=== PATIENT | female | born 1960 | race Caucasian/White ===

== ENCOUNTER 2019-06-07 13:56 | Emergency (ER) | payer MEDICARE, MEDICAID ==
[~2019-06-07] VITALS: Ht 165.1 cm; Wt 110.4 kg
[~2019-06-07 13:56] MED LIST: BUPR100T6 PO; CLON1TAB23 PO; LAMO100T37 PO; MELO15TA23 PO; OMEP20CA16 PO; VENTOLIN HFA18 GM INH; ZOLP10TA PO
[2019-06-07 14:34] LABS: BASO # 0.1 x10^3/uL (0.0-0.2); BASO % 1 % (0-3); EOS # 0.2 x10^3/uL (0.0-0.7); EOS % 2 % (0-3); HEMATOCRIT 42.8 % (36.0-47.0); HEMOGLOBIN 14.2 g/dL (12.0-15.5); LYMPH # 2.7 x10^3/uL (1.0-4.8); LYMPH % 32 % (24-48); MEAN CORPUSCULAR HEMOGLOBIN 28 pg (25-35); MEAN CORPUSCULAR HGB CONC 33 g/dL (31-37); MEAN CORPUSCULAR VOLUME 85 fL (79-100); MONO # 0.6 x10^3/uL (0.0-1.1); MONO % 7 % (0-9); NEUT # 4.9 x10^3/uL (1.8-7.7); NEUT % 57 % (31-73); PLATELET COUNT 243 x10^3/uL (140-400); RED BLOOD COUNT 5.06 x10^6/uL (3.50-5.40); WHITE BLOOD COUNT 8.5 x10^3/uL (4.0-11.0)
--- NOTE | 2019-06-07 14:42 | PHYS DOC ---
Adult General Chief Complaint Chief Complaint: SHORTNESS OF BREATH HPI HPI Patient is a 59 year old female who presents with per EMS with shortness of breath and increasing cough for the last 3 days. She states she has been using her inhalers at home but they are not helping. She does have COPD and is a smoker currently. She denies fever, nausea, vomiting, chest pain, dizziness, LOC, vision changes, numbness or tingling, focal weakness, diarrhea, headache. Review of Systems Review of Systems Respiratory: cough or shortness of breath [] All other systems were reviewed and found to be within normal limits, except as documented in this note. Current Medications Current Medications Current Medications Medications (Trade) Dose Ordered Sig/Kenny Start Time Stop Time Status Last Admin Dose Admin Albuterol Sulfate (Ventolin Neb Soln) 2.5 mg 1X ONCE 06/07/19 14:45 06/07/19 14:46 DC Methylprednisolone Sodium Succinate (SOLU-Medrol 125MG VIAL) 125 mg 1X ONCE 06/07/19 14:45 06/07/19 14:46 DC 06/07/19 15:01 125 MG Allergies Allergies Allergies Coded Allergies Type Severity Reaction Last Updated Verified aspirin Allergy Intermediate heart speeds up 08/23/13 Yes Physical Exam Physical Exam Constitutional: Well developed, well nourished, no acute distress, non-toxic appearance. [] HENT: Normocephalic, atraumatic, bilateral external ears normal, oropharynx moist, no oral exudates, nose normal. [] Eyes: PERRLA, EOMI, conjunctiva normal, no discharge. [] Neck: Normal range of motion, no tenderness, supple, no stridor. [] Cardiovascular:Heart rate regular rhythm, no murmur [] Lungs & Thorax: Bilateral upper breath sounds clear and lower diminished to auscultation [] Abdomen: Bowel sounds normal, soft, no tenderness, no masses, no pulsatile masses. [] Skin: Warm, dry, no erythema, no rash. [] Back: No tenderness, no CVA tenderness. [] Extremities: No tenderness, no cyanosis, no clubbing, ROM intact, no edema. [] Neurologic: Alert and oriented X 3, normal motor function, normal sensory function, no focal deficits noted. [] Psychologic: Affect normal, judgement normal, mood normal. [] Current Patient Data Vital Signs Vital Signs Date Time Temp Pulse Resp B/P (MAP) Pulse Ox O2 Delivery O2 Flow Rate FiO2 06/07/19 15:11 82 121/68 (85) 96 Room Air 06/07/19 13:56 98.4 20 98.4 Lab Values Laboratory Tests Test 06/07/19 14:20 06/07/19 15:10 White Blood Count 8.5 x10^3/uL (4.0-11.0) Red Blood Count 5.06 x10^6/uL (3.50-5.40) Hemoglobin 14.2 g/dL (12.0-15.5) Hematocrit 42.8 % (36.0-47.0) Mean Corpuscular Volume 85 fL (79-100) Mean Corpuscular Hemoglobin 28 pg (25-35) Mean Corpuscular Hemoglobin Concent 33 g/dL (31-37) Red Cell Distribution Width 15.0 % (11.5-14.5) H Platelet Count 243 x10^3/uL (140-400) Neutrophils (%) (Auto) 57 % (31-73) Lymphocytes (%) (Auto) 32 % (24-48) Monocytes (%) (Auto) 7 % (0-9) Eosinophils (%) (Auto) 2 % (0-3) Basophils (%) (Auto) 1 % (0-3) Neutrophils # (Auto) 4.9 x10^3/uL (1.8-7.7) Lymphocytes # (Auto) 2.7 x10^3/uL (1.0-4.8) Monocytes # (Auto) 0.6 x10^3/uL (0.0-1.1) Eosinophils # (Auto) 0.2 x10^3/uL (0.0-0.7) Basophils # (Auto) 0.1 x10^3/uL (0.0-0.2) Sodium Level 143 mmol/L (136-145) Potassium Level 4.2 mmol/L (3.5-5.1) Chloride Level 106 mmol/L (98-107) Carbon Dioxide Level 28 mmol/L (21-32) Anion Gap 9 (6-14) Blood Urea Nitrogen 15 mg/dL (7-20) Creatinine 0.8 mg/dL (0.6-1.0) Estimated GFR (Cockcroft-Gault) 73.4 BUN/Creatinine Ratio 19 (6-20) Glucose Level 101 mg/dL (70-99) H Calcium Level 9.7 mg/dL (8.5-10.1) Total Bilirubin 0.2 mg/dL (0.2-1.0) Aspartate Amino Transferase (AST) 21 U/L (15-37) Alanine Aminotransferase (ALT) 21 U/L (14-59) Alkaline Phosphatase 108 U/L (46-116) Troponin I Quantitative < 0.017 ng/mL (0.000-0.055) PV-Qsu-W-Type Natriuretic Peptide 17 pg/mL (0-124) Total Protein 7.3 g/dL (6.4-8.2) Albumin 3.2 g/dL (3.4-5.0) L Albumin/Globulin Ratio 0.8 (1.0-1.7) L Influenza Type A Antigen Negative (NEGATIVE) Influenza Type B Antigen Negative (NEGATIVE) Laboratory Tests 06/07/19 14:20 Laboratory Tests 06/07/19 15:10 EKG EKG SINUS RHYTHM AND NO STEMI[] Interpretation Time: [address] FIORE Radiology/Procedures Radiology/Procedures [] Impressions: [facility] [address] [place], [place] [id number] IMAGING REPORT Signed PATIENT: KIMBERLEY LOZA DACCOUNT: [id number] : 1960 LOCATION: ER AGE: 59 SEX: F EXAM STATUS: REG ER ORD. PHYSICIAN: ZACK MCADAMS APRN REASON: soa, cough PROCEDURE: PORTABLE CHEST 1V PORTABLE CHEST 1V Clinical indications: Shortness of air and cough. COMPARISON: None available. Findings: Old granulomatous disease is seen. No acute lung infiltrate or pleural effusion or pulmonary edema or lung mass or pneumothorax is seen. The heart size, pulmonary vasculature, mediastinum and both elliot are unremarkable. Impression: No acute radiographic abnormality is seen. Electronically signed by: Tello Rasheed MD (06/07/2019 3:14 PM) [facility] [place] DICTATED and SIGNED BY: TELLO RASHEED MD DATE: 06/07/19 9004 Course & Med Decision Making Course & Med Decision Making Pertinent Labs and Imaging studies reviewed. (See chart for details) Alert and oriented. Speaks in full clear sentences. Skin pink warm and dry. Lungs are clear in upper lobes but diminished in lower lobes bilaterally. Ambulatory with a steady gait. Patient is 95% on room air. No extremity edema. Patient is stable and states she is feeling better and ready to go home. Patient lungs are clear and vital signs are normal. Chest xrays normal and blood work is good. Patient is stable and discharged home. [] Dragon Disclaimer Dragon Disclaimer This electronic medical record was generated, in whole or in part, using a voice recognition dictation system. Departure Departure Impression: Primary Impression: Shortness of breath Disposition: HOME, SELF-CARE Condition: STABLE Referrals: ABDULKADIR GARCIA MD (PCP) Patient Instructions: Chronic Obstructive Pulmonary Disease Exacerbation, [id number] Additional Instructions: Follow up with primary care provider. Take medication as prescribed. Scripts Albuterol Sulfate (PROAIR HFA INHALER) 8.5 Gm Hfa.aer.ad 1 PUFF INH PRN Q6HRS PRN for SHORTNESS OF BREATH, #1 INHALER 0 Refills Prov: ZACK MCADAMS APRN 06/07/19 Methylprednisolone (MEDROL) 4 Mg Tab.ds.pk 1 PKG PO UD, #1 PKG Prov: ZACK MCADAMS APRN 06/07/19 ZACK MCADAMS APRN Jun 07, 2019 14:42
[2019-06-07] MEDS ORDERED: methylPREDNISolone SOD SUCC PF 125 MG/2 ML VIAL. IV ONE (14:45)
[2019-06-07] MEDS ORDERED: ALBUTEROL SULFATE 2.5 MG/3 ML NEBU. NEB ONE (14:45)
--- NOTE | 2019-06-07 14:50 | EKG ---
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
[2019-06-07 15:16] LABS: BASE EXCESS COOX 0 mmol/L (-3-3); HCO3 COOX 26 mmol/L (21-28); METHEMOGLOBIN 0.2 % (0.0-1.9); OXYHEMOGLOBIN 89.9 %; PCO2 COOX 47 mmHg (35-46); PO2 COOX 67 mmHg (65-108); SAT O2 COOX 93 % (92-99)
--- NOTE | 2019-06-07 15:17 | RAD ---
PORTABLE CHEST 1V Clinical indications: Shortness of air and cough. COMPARISON: None available. Findings: Old granulomatous disease is seen. No acute lung infiltrate or pleural effusion or pulmonary edema or lung mass or pneumothorax is seen. The heart size, pulmonary vasculature, mediastinum and both elliot are unremarkable. Impression: No acute radiographic abnormality is seen. Electronically signed by: Genaro Rasheed MD (06/07/2019 3:14 PM) [facility] [place]
[2019-06-07 15:37] LABS: CALCIUM 9.7 mg/dL (8.5-10.1); CREATININE 0.8 mg/dL (0.6-1.0); GFR 73.4; POTASSIUM 4.2 mmol/L (3.5-5.1)
[2019-06-07 15:38] VITALS: BP 151/88
[2019-06-07 15:43] LABS: ALBUMIN 3.2 g/dL (3.4-5.0); ALBUMIN/GLOBULIN RATIO 0.8 (1.0-1.7); TOTAL BILIRUBIN 0.2 mg/dL (0.2-1.0); TOTAL PROTEIN 7.3 g/dL (6.4-8.2)
[2019-06-07 15:45] LABS: INFLUENZA A PATIENT NEGATIVE (NEGATIVE); INFLUENZA B PATIENT NEGATIVE (NEGATIVE)
[2019-06-07] MEDS ORDERED: METH4TAB2 PO (15:56)
[2019-06-07] MEDS ORDERED: ALBU2.5V8 INH (15:56)
== END 2019-06-07 16:01 | disposition home or self-care (01) ==
LOC: ER 13:56
DX: R06.02 Shortness of breath (principal); R05 Cough; J44.9 Chronic obstructive pulmonary disease, unspecified; F17.200 Nicotine dependence, unspecified, uncomplicated; Z88.6 Allergy status to analgesic agent
CPT/HCPCS: 36415; 36600; 71045; 80053; 82805; 83880; 84484; 85025; 87804; 93005; 94640; 96374; 99285; J2930

== ENCOUNTER 2020-09-23 09:35 | Emergency (ER) | payer MEDICARE, MEDICAID ==
[~2020-09-23] VITALS: Ht 165.1 cm; Wt 110.4 kg
[~2020-09-23 09:35] MED LIST changes: +ALBU2.5V8 INH; +METH4TAB2 PO
[2020-09-23] MEDS ORDERED: ASPIRIN CHEWABLE 81 MG TABLET. PO ONE (10:00)
--- NOTE | 2020-09-23 10:03 | PHYS DOC ---
Past Medical History Past Medical History: Bipolar, Bronchitis, COPD, GERD Past Surgical History: Hysterectomy, Other Additional Past Surgical Histo: KNEE/BLADDER LIFT/BREAST-CYST Smoking Status: Former Smoker Alcohol Use: None General Adult EDM: Chief Complaint: ABDOMINAL PAIN HPI: HPI: Patient is a 60-year-old female presenting for abdominal and chest pain. Patient was admitted and subsequently left AMA approximately 2 weeks ago in the middle of treatment for COVID-19 pneumonia and potential superior mesenteric vein thrombus. She did not leave on any antibiotics or anticoagulation. Reports improvement in overall symptoms but yesterday, without any known inciting event, exposure or trauma, patient started experiencing generalized 6/10 severity abdominal pain. Nothing known makes better or worse. This is w axed and waned since onset. She also reports onset of dull 8/10 left-sided chest pain that is constant since onset. She takes gabapentin and benzodiazepines only, no aspirin/Plavix or anticoagulants, has distant history of nuclear stress test but this was years ago and negative, no further cardiac work-up in the past. Continues to smoke, denies alcohol or illicit drug use. Review of Systems: Review of Systems: Fourteen body systems of review of systems have been reviewed. See HPI for pertinent positives and negative responses, other mensah all other systems are negative, non-pertinent or non-contributory Heart Score: C/O Chest Pain: Yes HEART Score for Chest Pain: HEART Score for Chest Pain Response (Comments) Value History Slighlty/Non-Suspicious 0 ECG Nonspecific Repolarizatio 1 Age >45 - < 65 1 Risk Factors 1 or 2 Risk Factors 1 Troponin < Normal Limit 0 Total 3 Risk Factors: Risk Factors: DM, Current or recent (<one month) smoker, HTN, HLP, family history of CAD, obesity. Risk Scores: Score 0 - 3: 2.5% MACE over next 6 weeks - Discharge Home Score 4 - 6: 20.3% MACE over next 6 weeks - Admit for Clinical Observation Score 7 - 10: 72.7% MACE over next 6 weeks - Early Invasive Strategies Allergies: Allergies: Allergies Coded Allergies Type Severity Reaction Last Updated Verified aspirin Allergy Intermediate heart speeds up 08/23/13 Yes Physical Exam: PE: Constitutional: Well developed, well nourished, no acute distress, non-toxic appearance. HENT: Normocephalic, atraumatic, bilateral external ears normal, oropharynx moist, poor dentition, no oral exudates, nose normal. Eyes: PERRLA, EOMI, conjunctiva normal, no discharge. Neck: Normal range of motion, no tenderness, supple, no stridor. Cardiovascular: Heart rate regular, sinus rhythm, no murmurs rubs or gallops Lungs & Thorax: No respiratory distress, increased work of breathing or accessory muscle use, there is mild wheezes most prominent during end expiratory phase of respiration Abdomen: Bowel sounds normal, soft, no tenderness, no masses, no pulsatile masses. Nonsurgical abdomen, no peritoneal signs Skin: Warm, dry, no erythema, no rash. Back: No tenderness, no CVA tenderness. Extremities: No tenderness, no cyanosis, no clubbing, ROM intact, no edema. Neurologic: Alert and oriented X 3, grossly normal motor & sensory function, no focal deficits noted. Psychologic: Anxious affect and mood, pressured speech Current Patient Data: Labs: Laboratory Tests Test 09/23/20 11:04 White Blood Count 9.0 x10^3/uL Red Blood Count 4.83 x10^6/uL Hemoglobin 14.5 g/dL Hematocrit 41.7 % Mean Corpuscular Volume 86 fL Mean Corpuscular Hemoglobin 30 pg Mean Corpuscular Hemoglobin Concent 35 g/dL Red Cell Distribution Width 15.2 % Platelet Count 249 x10^3/uL Neutrophils (%) (Auto) 55 % Lymphocytes (%) (Auto) 32 % Monocytes (%) (Auto) 10 % Eosinophils (%) (Auto) 3 % Basophils (%) (Auto) 1 % Neutrophils # (Auto) 4.9 x10^3/uL Lymphocytes # (Auto) 2.8 x10^3/uL Monocytes # (Auto) 0.9 x10^3/uL Eosinophils # (Auto) 0.3 x10^3/uL Basophils # (Auto) 0.0 x10^3/uL Sodium Level 141 mmol/L Potassium Level 4.2 mmol/L Chloride Level 104 mmol/L Carbon Dioxide Level 27 mmol/L Anion Gap 10 Blood Urea Nitrogen 7 mg/dL Creatinine 0.8 mg/dL Estimated GFR (Cockcroft-Gault) 73.2 BUN/Creatinine Ratio 9 Glucose Level 115 mg/dL Calcium Level 8.9 mg/dL Total Bilirubin 0.2 mg/dL Aspartate Amino Transf (AST/SGOT) 15 U/L Alanine Aminotransferase (ALT/SGPT) 17 U/L Alkaline Phosphatase 92 U/L Troponin I Quantitative < 0.017 ng/mL FA-Hid-P-Type Natriuretic Peptide 17 pg/mL Total Protein 7.3 g/dL Albumin 3.3 g/dL Albumin/Globulin Ratio 0.8 Lipase 96 U/L Current Medications Medications (Trade) Dose Ordered Sig/Kenny Route PRN Reason Start Time Stop Time Status Last Admin Dose Admin Aspirin (Aspirin Chewable) 324 mg 1X ONCE PO 09/23/20 10:00 09/23/20 10:05 DC Iohexol (Omnipaque 350 Mg/ml) 100 ml 1X ONCE IV 09/23/20 11:30 09/23/20 11:31 DC 09/23/20 11:30 Info (CONTRAST GIVEN -- Rx MONITORING) 1 each PRN DAILY PRN MC SEE COMMENTS 09/23/20 11:30 09/25/20 11:29 Vital Signs: Vital Signs Date Time Temp Pulse Resp B/P (MAP) Pulse Ox O2 Delivery O2 Flow Rate FiO2 09/23/20 09:48 97.4 103 18 144/86 (69) 96 Room Air 97.4 Vital Signs Date Time Temp Pulse Resp B/P (MAP) Pulse Ox O2 Delivery O2 Flow Rate FiO2 09/23/20 09:48 97.4 103 18 144/86 (69) 96 Room Air 97.4 EKG: EKG: EKG ordered and interpreted by myself at 1005 hrs. as sinus rhythm at 93 bpm, unremarkable intervals, no axis deviation, no acute ischemic findings, no STEMI EKG ordered and interpreted by myself at 1149 hrs. is sinus rhythm 87 bpm, unremarkable intervals, no axis deviation, T wave inversion noted in lead III, no STEMI Radiology/Procedures: Radiology/Procedures: Exam Date: 09/23/2020 10:18 AM XR CHEST 1V Indication: Reason: chest pain / Spl. Instructions: / History: . Comparison: September 08, 2020 FINDINGS/ IMPRESSION: Patchy infiltrates in the right lung base at the periphery of the left lung are not significantly changed and may represent multifocal pneumonia. Continued imaging follow-up to resolution is recommended. The cardiac silhouette and pulmonary vasculature are within normal limits. There is no appreciable pleural effusion or pneumothorax. Electronically signed by: Marcial Wallace MD (09/23/2020 10:29 AM) [id number] ///////////////////////// EXAMINATION: CTA chest, abdomen and pelvis with IV contrast. INDICATION:60 years, Female, chest and abdominal pain. TECHNIQUE: Axial CTA images of the chest, abdomen and pelvis were obtained. MIP Coronal and sagittal reformatted performed. COMPARISON: CT dated 09/08/2020. Exposure: One or more of the following individualized dose reduction techniques were utilized for this examination: 1. Automated exposure control 2. Adjustment of the mA and/or kV according to patient size 3. Use of iterative reconstruction technique. FINDINGS: VASCULAR: Thoracic aorta is normal in caliber. It demonstrates mild atherosclerotic calcification without significant narrowing. Classic anatomy of aortic arch with patent great vessels. Normal caliber pulmonary trunk. No filling defect in the pulmonary artery to suggest pulmonary embolism. Moderate aortobiiliac atherosclerotic disease without significant narrowing. Focal ectasia of the infrarenal abdominal aorta measures 2.5 x 2.2 cm. Celiac trunk, SMA and LUIS are patent. Patent bilateral renal arteries. Bilateral common, internal and external iliac arteries are patent without significant narrowing. Bilateral common femoral, visualized deep and superficial femoral arteries are patent. Nonocclusive thrombus in the superior mesenteric vein extends to the portal venous confluence, associated with mesenteric fat stranding. No filling defect in the main portal vein. NONVASCULAR: CHEST: Visualized thyroid and esophagus are unremarkable. No lymphadenopathy in the chest by size criteria. Normal cardiac size with no pericardial effusion. Moderate coronary artery atherosclerotic calcifications. Central airways are patent. Dependent subsegmental atelectasis. Calcified granuloma in the left upper lobe. 4 mm pulmonary nodule in the left upper lobe (series 3 image 47). There is a 4 mm pulmonary nodule in the right upper lobe (series 3 image 51). Fissure based 3 mm nodule in the right middle lobe (series 3 image 60). No focal consolidation, pleural effusion or pneumothorax. ABDOMEN/PELVIS: Mild hepatomegaly with diffuse steatosis, measures 19.7 cm in length. No suspicious focal hepatic lesion. Calcified granulomas in the spleen. Multiple noncalcified cholelithiasis. No CT evidence of acute cholecystitis. No biliary ductal dilation. Unremarkable pancreas. No adrenal nodule. No hydronephrosis in either kidney. Two simple subjacent cysts/bilobed mildly complex cyst with a thin internal septation seen in right kidney measures 8.4 cm. No bowel obstruction. Few colonic diverticulosis. Normal appendix. No pneumoperitoneum or ascites. No abdominal lymphadenopathy by size criteria. Underdistended urinary bladder which limits evaluation. Hysterectomy. No suspicious pelvic masses. MUSCULOSKELETAL: No acute osseous process. Degenerative changes in the lower lumbar spine. Small fat-containing umbilical hernia. New 1.8 x 1.5 cm soft tissue nodule with adjacent fat stranding in the subcutaneous tissue of the left anterior abdominal wall, likely related to injection medication. IMPRESSION: 1. Nonocclusive filling defect in the superior mesenteric vein extends to the portal venous confluence, associated with mesenteric fat stranding. Findings suggesting of nonocclusive thrombophlebitis, worsened since prior exam. 2. No acute abnormality in the chest, specifically no pulmonary embolism. 3. Focal ectasia of the infrarenal abdominal aorta measures up to 2.5 cm in diameter. 4. Few sub-5 mm pulmonary nodules in both lungs. High-risk patient, consider 12 months follow-up with CT chest. 5. Other chronic/incidental findings, as described above. Electronically signed by: Yola Cruz MD (09/23/2020 12:44 PM) [id number] Course & Med Decision Making: Course & Med Decision Making ABCs unremarkable. I disclosed entirety of ER findings and discussed most likely diagnosis of partially occluded superior mesenteric vein thrombophlebitis. I contacted interventional radiology and reviewed case, no indication for surgical fixation based on presenting symptoms and an otherwise well-appearing patient, recommendations made to start anticoagulation for venous thrombosis treatment. I disclosed entirety of ER visit with patient, she is requesting departure home which I feel is appropriate but did stressed need to start anticoagulants before departure, she was amenable after extensive risk versus benefits of anticoagulation discussion. I discussed dosing regimen of 15 mg daily with food for 21 days followed by 20 mg once daily with food. she is also requesting COVID-19 swab, I discussed given recent diagnosis validity of such test would be poor and recommended against this but she was adamant about wanting one, I com plied and tested patient with results pending. Access to care/PCP addressed, she has insurance and outpatient primary care physician. I also gave patient resources on local primary care physicians that she would like to reestablish with a primary care physician associated with [facility]. Strict return precautions were also discussed at length with good understanding by patient. Patient voiced understanding and agreement with the plan. Patient knows to come back for repeat evaluation if concerning signs or symptoms present prior to outpatient follow-up. Hemodynamically stable, ambulatory and well-appearing at time of disposition. Dragon Disclaimer: Dragon Disclaimer: This electronic medical record was generated, in whole or in part, using a voice recognition dictation system. Departure Departure Impression: Primary Impression: Superior mesenteric vein thrombosis Disposition: HOME / SELF CARE / HOMELESS Condition: STABLE Referrals: ABDULKADIR GARCIA MD (PCP) Additional Instructions: As discussed prior to your departure, you were diagnosed with a partially occluded superior mesenteric vein. This partial occlusion is causing irritation and likely contributing to your waxing and waning abdominal pain. Your vital signs, physical examination and comprehensive evaluation that included specialist consultation was nonconcerning for any emergent or surgical issues. Joint decision among all to start anticoagulation otherwise known as blood thinner medications for your condition. I have prescribed you Xarelto. You need to take this twice a day for 21 days. Prior to completion, it is imperative you follow-up with your primary care physician to get subsequent prescription for 20 mg daily Xarelto for a total duration of treatment of 3 months at the bare minimum for your condition. If any concerning signs or sy mptoms present prior to outpatient follow-up please do not hesitate to come back for repeat evaluation. It was a pleasure to take care of you and I wish you the best going forward Scripts Rivaroxaban (XARELTO) 15 Mg Tablet 1 TAB PO BID for 21 Days, #42 TAB 0 Refills Prov: YAMIL MANN DO 09/23/20 YAMIL MANN DO Sep 23, 2020 10:03
--- NOTE | 2020-09-23 10:31 | RAD ---
Exam Date: 09/23/2020 10:18 AM XR CHEST 1V Indication: Reason: chest pain / Spl. Instructions: / History: . Comparison: September 08, 2020 FINDINGS/ IMPRESSION: Patchy infiltrates in the right lung base at the periphery of the left lung are not significantly ramonita nged and may represent multifocal pneumonia. Continued imaging follow-up to resolution is recommende d. The cardiac silhouette and pulmonary vasculature are within normal limits. There is no appreciable pleural effusion or pneumothorax. Electronically signed by: Marcial Wallace MD (09/23/2020 10:29 AM) [id number]
[2020-09-23 11:16] LABS: BASO % 1 % (0-3); EOS # 0.3 x10^3/uL (0.0-0.7); EOS % 3 % (0-3); HEMATOCRIT 41.7 % (36.0-47.0); HEMOGLOBIN 14.5 g/dL (12.0-15.5); LYMPH # 2.8 x10^3/uL (1.0-4.8); LYMPH % 32 % (24-48); MEAN CORPUSCULAR HEMOGLOBIN 30 pg (25-35); MEAN CORPUSCULAR HGB CONC 35 g/dL (31-37); MEAN CORPUSCULAR VOLUME 86 fL (79-100); MONO # 0.9 x10^3/uL (0.0-1.1); MONO % 10 % (0-9); NEUT # 4.9 x10^3/uL (1.8-7.7); NEUT % 55 % (31-73); PLATELET COUNT 249 x10^3/uL (140-400); RED BLOOD COUNT 4.83 x10^6/uL (3.50-5.40); RED CELL DISTRIBUTION WIDTH 15.2 % (11.5-14.5)
--- NOTE | 2020-09-23 11:23 | EKG ---
[facility] [address] [place] [address] Test Date: 2020-09-23 Test Time: 10:01:09 Pat Name: KIMBERLEY LOZA Department: Room: Gender: F Reading Specialist: : 1960 Requested By: YAMIL MANN Order Number: [id number] Reading MD: Chevy Coats Measurements Intervals [place] Rate: 93 P: 30 [place]: 146 QRS: 30 QRSD: 78 T: 10 QT: 338 QTc: 423 Interpretive Statements SINUS RHYTHM NORMAL ECG RI6.01 Compared to ECG 09/08/2020 12:19:41 No significant changes Electronically Signed On 09-24-2020 11:51:00 CDT by Chevy Coats
[2020-09-23 11:29] LABS: CALCIUM 8.9 mg/dL (8.5-10.1); CREATININE 0.8 mg/dL (0.6-1.0); GFR 73.2; POTASSIUM 4.2 mmol/L (3.5-5.1)
[2020-09-23] MEDS ORDERED: IOHEXOL 350 MG/ML 100 ML VIAL. IV ONE (11:30)
[2020-09-23] MEDS ORDERED: CONTRAST GIVEN. MC PRN (11:30)
[2020-09-23 11:34] LABS: ALBUMIN 3.3 g/dL (3.4-5.0); ALBUMIN/GLOBULIN RATIO 0.8 (1.0-1.7); TOTAL BILIRUBIN 0.2 mg/dL (0.2-1.0); TOTAL PROTEIN 7.3 g/dL (6.4-8.2)
--- NOTE | 2020-09-23 12:46 | RAD ---
EXAMINATION: CTA chest, abdomen and pelvis with IV contrast. INDICATION:60 years, Female, chest and abdominal pain. TECHNIQUE: Axial CTA images of the chest, abdomen and pelvis were obtained. MIP Coronal and sagittal reformatted performed. COMPARISON: CT dated 09/08/2020. Exposure: One or more of the following individualized dose reduction techniques were utilized for thi s examination: 1. Automated exposure control 2. Adjustment of the mA and/or kV according to patient size 3. Use of iterative reconstruction technique. FINDINGS: VASCULAR: Thoracic aorta is normal in caliber. It demonstrates mild atherosclerotic calcification without signi ficant narrowing. Classic anatomy of aortic arch with patent great vessels. Normal caliber pulmonary trunk. No filling defect in the pulmonary artery to suggest pulmonary embolism. Moderate aortobiiliac atherosclerotic disease without significant narrowing. Focal ectasia of the inf rarenal abdominal aorta measures 2.5 x 2.2 cm. Celiac trunk, SMA and LUIS are patent. Patent bilateral renal arteries. Bilateral common, internal and external iliac arteries are patent without significan t narrowing. Bilateral common femoral, visualized deep and superficial femoral arteries are patent. 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 No filling defect in the main portal vein. NONVASCULAR: CHEST: Visualized thyroid and esophagus are unremarkable. No lymphadenopathy in the chest by size criteria. Normal cardiac size with no pericardial effusion. Moderate coronary artery atherosclerotic calcificat ions. Central airways are patent. Dependent subsegmental atelectasis. Calcified granuloma in the left upper lobe. 4 mm pulmonary nodule in the left upper lobe (series 3 image 47). There is a 4 mm pulmonary no dule in the right upper lobe (series 3 image 51). Fissure based 3 mm nodule in the right middle lobe (series 3 image 60). No focal consolidation, pleural effusion or pneumothorax. ABDOMEN/PELVIS: Mild hepatomegaly with diffuse steatosis, measures 19.7 cm in length. No suspicious focal hepatic les ion. Calcified granulomas in the spleen. Multiple noncalcified cholelithiasis. No CT evidence of acut e cholecystitis. No biliary ductal dilation. Unremarkable pancreas. No adrenal nodule. No hydronephro sis in either kidney. Two simple subjacent cysts/bilobed mildly complex cyst with a thin internal sep tation seen in right kidney measures 8.4 cm. No bowel obstruction. Few colonic diverticulosis. Normal appendix. No pneumoperitoneum or ascites. No abdominal lymphadenopathy by size criteria. Underdistended urinary bladder which limits evaluation. Hysterectomy. No suspicious pelvic masses. MUSCULOSKELETAL: No acute osseous process. Degenerative changes in the lower lumbar spine. Small fat-containing umbili randolph hernia. New 1.8 x 1.5 cm soft tissue nodule with adjacent fat stranding in the subcutaneous tissu e of the left anterior abdominal wall, likely related to injection medication. IMPRESSION: 1. 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 Findings suggesting of nonocclusive thrombophlebitis, wo rsened since prior exam. 2. No acute abnormality in the chest, specifically no pulmonary embolism. 3. Focal ectasia of the infrarenal abdominal aorta measures up to 2.5 cm in diameter. 4. Few sub-5 mm pulmonary nodules in both lungs. High-risk patient, consider 12 months follow-up with CT chest. 5. Other chronic/incidental findings, as described above. Electronically signed by: Yola Cruz MD (09/23/2020 12:44 PM) [id number]
[2020-09-23] MEDS ORDERED: RIVA15TA PO (13:27)
[2020-09-23 13:57] VITALS: BP 144/96
--- NOTE | 2020-09-23 14:20 | EKG ---
[facility] [address] [place] [id number] Test Date: 2020-09-23 Test Time: 11:45:30 Pat Name: KIMBERLEY LOZA Department: Room: Gender: F [employer] Assistant: : [id number] Requested By: YAMIL MANN Order Number: [id number] Reading MD: Chevy Coats Measurements Intervals [place] Rate: 87 P: 33 NV: 146 QRS: 34 QRSD: 78 T: 9 QT: 358 QTc: 431 Interpretive Statements SINUS RHYTHM NORMAL ECG Electronically Signed On 09-24-2020 11:50:22 CDT by hCevy Coats
== END 2020-09-23 14:14 | disposition home or self-care (01) ==
LOC: ER 09:35
DX: K55.059 Acute (reversible) ischemia of intestine, part and extent unspecified (principal); R10.84 Generalized abdominal pain; J44.9 Chronic obstructive pulmonary disease, unspecified; K21.9 Gastro-esophageal reflux disease without esophagitis; F31.9 Bipolar disorder, unspecified; Z90.710 Acquired absence of both cervix and uterus; Z87.891 Personal history of nicotine dependence; Z88.6 Allergy status to analgesic agent
CPT/HCPCS: 36415; 71045; 71275; 74174; 80053; 83690; 83880; 84484; 85025; 93005; 99285; Q9967